=== PATIENT | male | born 1990 | race African-American/Black ===

== ENCOUNTER 2023-05-17 19:03 | Emergency (ER) | payer OTHER, SELFPAY ==
[2023-05-17 19:41] VITALS: BP 166/106; PULSE 80; RESP 18; TEMP 36.4; O2SAT 98
[2023-05-17 20:30] LABS: Influenza A QL RT-PCR Negative (Negative); Influenza B QL RT-PCR Negative (Negative); RSV RNA, RT-PCR Positive (Negative); SARS-CoV-2 RNA PCR Negative (Negative)
--- NOTE | 2023-05-17 22:41 | ED.URI ---
HPI - URI/Sore Throat General Chief Complaint: Upper Respiratory Infection Stated Complaint: flu like symptoms, coughing, back pain Time Seen by Provider: 05/17/23 21:51 History of Present Illness HPI Narrative: Patient is a 33-year-old male with history of hypertension presenting with flu-like symptoms. States that for the last several days he has had a cough and has been coughing up mucus. States that he has a long history of chronic lower back pain. He has had a diskectomy and laminectomy in the past. He fell down his stairs a few days ago and since that time has had an exacerbation of his left-sided lower back pain. States that it really hurts whenever he coughs. He has been taking Tylenol with some relief. Denies new numbness or weakness, saddle anesthesia, bladder or bowel incontinence. No fevers or chills. No chest pain or difficulty breathing. No leg swelling. Related Data Allergies Allergy/AdvReac Type Severity Reaction Status Date / Time No Known Allergies Allergy Unverified 12/27/17 13:43 Review of Systems Review of Systems: All systems reviewed & are unremarkable except as noted in HPI and below Exam Narrative: GENERAL: Well-appearing, in no acute distress, very pleasant and cooperative HEAD: Normocephalic, atraumatic. EYES: PERRLA and EOMI. ENT: +nasal congestion NECK: Supple. CHEST: Clear to auscultation. No respiratory distress. +coughing intermittently HEART: Regular rate and rhythm. EXTREMITIES: Normal range of motion. BACK: left lower back tenderness w/palpation, no midline tenderness SKIN: Warm, dry, no rash. NEURO: No focal deficits. Alert and oriented x3. PSYCH: Normal mood and affect. Course Vital Signs Vital signs: Vital Signs Temperature 97.5 F L 05/17/23 19:41 Pulse Rate 80 05/17/23 19:41 Respiratory Rate 18 05/17/23 19:41 Blood Pressure 166/106 H 05/17/23 19:41 Pulse Oximetry 98 05/17/23 19:41 Oxygen Delivery Room Air 05/17/23 19:41 Temperature 97.5 F L 05/17/23 19:41 Pulse Rate 80 05/17/23 19:41 Respiratory Rate 18 05/17/23 19:41 Blood Pressure 166/106 H 05/17/23 19:41 Pulse Oximetry 98 05/17/23 19:41 Oxygen Delivery Room Air 05/17/23 19:41 MDM - URI/Sore Throat MDM Narrative Medical decision making narrative: 33-year-old male presenting with URI symptoms for several days. Vitals stable. Exam remarkable for the above. Patient is positive for RSV. Patient complains of severe lower back pain whenever he coughs, states that he has a history of lower back pain. He also has a history of of gastric bypass and is unable to take regular NSAIDs. Will provide short course of Tylenol 3 and advised close PCP follow-up. Appropriate return precautions given. Discharged in stable condition. Differential Diagnosis Differential diagnosis: Likely upper respiratory infection, viral infection and influenza Lab Data Attestation: I reviewed the patient's lab results. Labs: Lab Results 05/17/23 Range/Units 19:49 Influenza A (RT-PCR) Negative (Negative) Influenza B (RT-PCR) Negative (Negative) RSV (RT-PCR) Positive A (Negative) SARS-CoV-2 RNA (RT-PCR) Negative (Negative) Critical Care Time Critical Care Time Critical Care Time: No Discharge Plan Discharge Clinical Impression: Respiratory syncytial virus (RSV), Low back pain Patient Disposition: Home, Self-Care Condition: Stable Instructions: Antibiotic Form, RSV (Respiratory Syncytial Virus) Infection (ED) Additional Instructions: You tested positive for RSV today. Please rest and drink plenty of hydrating fluids. We have provided a short course of Tylenol 3 to help with your cough and severe back pain. Please follow-up closely with your PCP. If your symptoms suddenly worsen or other concerning symptoms arise, please return to the ER. Prescriptions: New acetaminophen-codeine 300-30 mg tablet 1 tablet PO Q6H PRN (Reason: pain) Qty: 10 0R
[2023-05-17 22:45] VITALS: O2SAT 99
[2023-05-17] MEDS: KETOROLAC 30 MG/ML VIAL (*BKC) IM (22:55)
[2023-05-17] MEDS: ACETAMINOPHEN/CODEINE (*CRX) 300/30 MG TABLET 1 TAB PO (22:55)
[2023-05-17 22:57] VITALS: BP 160/100; PULSE 83; RESP 20; TEMP 36.7; O2SAT 97
== END 2023-05-17 23:07 | disposition home or self-care (01) ==
PROVIDERS: Emergency Provider Emergency Medicine
DX: J22 Unspecified acute lower respiratory infection (principal); B97.4 Respiratory syncytial virus as the cause of diseases classified elsewhere; M54.50 Low back pain, unspecified; Z98.84 Bariatric surgery status
CPT/HCPCS: 87637; 96372; 99283; A9270; J1885

== ENCOUNTER 2023-07-30 16:04 | Emergency (ER) | payer OTHER, SELFPAY ==
--- NOTE | ~2023-07-30 | XR_ITS ---
XR ankle LT min 3V, XR foot LT min 3V 07/30/2023 16:43 Indication: Left ankle and foot pain after injury Procedure: 4 views left ankle and 4 views left foot Comparison: No prior studies for comparison. Findings: No fracture, subluxation or dislocation. Ankle mortise intact. No significant soft tissue a bnormality. No foreign bodies. Impression: 1: No acute bone or joint abnormality. Reviewed, dictated and finalized at location B. Impression: 1: No acute bone or joint abnormality. Impression: 1: No acute bone or joint abnormality.
[2023-07-30 16:08] VITALS: PULSE 124; RESP 16; TEMP 36.8; O2SAT 98
[2023-07-30 16:13] VITALS: PULSE 124; RESP 16; TEMP 36.8; O2SAT 98
[2023-07-30 16:15] VITALS: BP 148/84
--- NOTE | 2023-07-30 16:51 | ED.LOWEXIN ---
HPI - Extremity Injury (Lower) General Chief Complaint: Extremity Injury, Lower Stated Complaint: left ankle injury History of Present Illness HPI Narrative: 33-year-old male presents to the emergency room for evaluation of left ankle foot pain status post fall this morning. The patient states that he misstepped off a curb this morning he, causing an inversion injury to his left foot. Patient states he is able a ambulate initially after the injury, but as the day progressed he began experiencing increased pain and swelling in his ankle and lateral surface of his foot. Patient applied an Billy bandage prior to her arrival. Related Data Allergies Allergy/AdvReac Type Severity Reaction Status Date / Time ibuprofen AdvReac Gastrointestinal Verified 07/30/23 16:13 Upset Review of Systems Review of Systems: CONSTITUTIONAL: Denies fever, chills, or sweats. EYES: Denies visual changes, redness, or discharge. ENT: Denies rhinorrhea, congestion, sore throat, or otalgia. CARDIOVASCULAR: Denies chest pain, palpitations, or edema. RESPIRATORY: Denies cough or dyspnea. GASTROINTESTINAL: Denies abdominal pain, nausea, vomiting, or diarrhea. GENITOURINARY: Denies dysuria or hematuria. SKIN: Denies rash or itching. MUSCULOSKELETAL: Reports left ankle and foot pain NEUROLOGIC: Denies headache, numbness, dizziness, or weakness. PSYCHIATRIC: Denies anxiety or depression. Exam Narrative: GENERAL: Well-appearing, well-nourished, no physical limitations, and in no acute distress. HEAD: Normocephalic, atraumatic. EYES: Conjunctivae normal, PERRLA and EOMI. CHEST: Clear to auscultation. No respiratory distress. No wheezes rales or rhonchi. HEART: Regular rate and rhythm. No murmur heard. Normal peripheral pulses. ABDOMEN: Soft, nontender, nondistended, normal active bowel sounds. EXTREMITIES: LLE: +TTP to distal malleolus with STS, LROM. No obvious bony abnormality. +TTP to base of 5th metatarsal SKIN: Warm, dry, no rash. No noted wounds NEURO: No focal deficits. Alert and oriented x3. MAEW. CN's II-XI intact bilaterally, in wheelchair PSYCH: Cooperative. Normal mood and affect. Course Vital Signs Vital signs: Vital Signs Temperature 36.8 C 07/30/23 16:08 Pulse Rate 124 H 07/30/23 16:08 Respiratory Rate 16 07/30/23 16:08 Pulse Oximetry 98 07/30/23 16:08 Oxygen Delivery Room Air 07/30/23 16:08 Temperature 36.8 C 07/30/23 16:13 Pulse Rate 124 H 07/30/23 16:13 Respiratory Rate 16 07/30/23 16:13 Blood Pressure 148/84 H 07/30/23 16:15 Pulse Oximetry 98 07/30/23 16:13 Oxygen Delivery Room Air 07/30/23 16:13 MDM - Extremity Injury (Lower) Imaging Data Radiologist's impression: Impressions Ankle X-Ray 07/30/23 16:45 Impression: 1: No acute bone or joint abnormality. Foot X-Ray 07/30/23 16:45 Impression: 1: No acute bone or joint abnormality. Discharge Plan Discharge Clinical Impression: Ankle sprain and strain Patient Disposition: Home, Self-Care Condition: Stable Instructions: Antibiotic Form, Ankle Sprain (ED) Prescriptions: New naproxen 500 mg tablet 500 mg PO BID Qty: 20 0RF No Action acetaminophen-codeine 300-30 mg tablet 1 tablet PO Q6H PRN (Reason: pain) Qty: 10 0RF Follow-up/Referrals: Sam Nichols MD [Physician] - [facility],MD Jono [Primary Care Provider] - Time of Disposition: 17:02
== END 2023-07-30 17:19 | disposition home or self-care (01) ==
PROVIDERS: Emergency Provider Nurse Practitioner Family; PCP Internal Medicine
DX: S93.492A Sprain of other ligament of left ankle, initial encounter (principal); W10.1XXA Fall (on)(from) sidewalk curb, initial encounter
CPT/HCPCS: 73610; 73630; 99283

== ENCOUNTER 2024-08-03 23:02 | Emergency (ER) | payer SELFPAY ==
[2024-08-03 23:03] VITALS: BP 172/105; PULSE 80; RESP 20; TEMP 36.6; O2SAT 94
--- OUTSIDE RECORDS SUMMARY | 2024-08-04 02:06 | XMS_ITS | Encounter Summary ---
Author Organization [facility] Address [facility] [place] [address] Care Team Providers Care Manager Business Banking Name Role Phone Lacho Tinajero MD Primary Care Provider [phone] Ramandeep Cartagena NP Primary Care Provider [phone] Jono Pérez MD Primary Care Provider Encounter Details Date Type Department Care Team (Late st Contact Info) Description 02/11/2020 MyChart Message Enc [facility] Family [facility] - [address] [place] [address] Lacho Tinajero MD [address] [address] Other Social History Tobacco Use Types Packs/Day Years Used Date Smoking Tobacco: Never Smokeless Tobacco: Never Alcohol Use Standard Drinks/Week Comments Yes 0 (1 standard drink = 0.6 oz pur e alcohol) Sex and Gender Information Value Date Recorded Sex Assigned at Not on file Legal Sex Male 9:19 PM CDT Gender Identity Not on file Sexual Orientation Not on file 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 No / Unsure 02/09/2020 1:53 PM CDT documented as of this encounter Progress Notes * Lacho Tinajero MD - 02/11/2020 11:02 AM CDT FMLA filled out and returned to you * Sydney Marcum MA - 02/11/2020 10:48 AM CDT . documented in this encounter Plan of Treatment Not on file documented as of this encounter Visit Diagnoses Not on filedocumented in this encounter Additional Health Concerns Infection Onset Date Last Indicated Resolved Time COVID-19 Rule Out 02/25/2023 02/25/2023 02/25/2023 11:11 AM FOUNDATION DIRECTOR documented as of this encounter Care Teams Manager Business Banking Relationship Specialty Start Date End Date Lacho Tinajero MD PCP - General FAMILY PRACTICE 05/26/19 10/16/21 Ramandeep Cartagena NP [address] [place] [address] PCP - General NURSE PRACTITIONER 10/17/21 02/24/23 Jono Pérez MD [address] [facility] [address] [place] [id number] PCP - General INTERNAL MEDICINE 02/25/23 documented as of this encounter
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
--- OUTSIDE RECORDS SUMMARY | 2024-08-04 02:06 | XMS_ITS | Referral Summary ---
Author Organization [facility] Address [address] [place] [address] Care Team Providers Care Central Office Supervisor Name Role Phone Katharine Marcum DO Primary Care Provider Allergies Active Allergy Reactions Criticality Noted Date Comments Ibuprofen Other (See comments) Low 05/14/2019 Pt not allergic, but cannot take ibuprofen due to gastric sleeve Medications predniSONE (DELTASONE) 10 mg tablet Take 3 tablets BID fr 4 days, 2 BID for 3 days & 1 BID for 3 days 42 tablet 8 Active Additional Information Patient not taking.Reported on 03/22/2022 ergocalciferol (VITAMIN D) 50,000 unit capsule Take 50,000 Units by mouth once a week. 8 Active acetaminophen ER (TYLENOL) 650 mg 8 hr tablet Take 650 mg by mouth every 8 (eight) hours as needed for pain. Active HYDROcodone-alejandra taminophen (NORCO) 5-325 mg per tabletIndicatio ns:Pain Take 1 tablet by mouth every 6 (six) hours as needed (as needed). Take 1-2 tablets up to Every 6 hours as needed 56 tablet 8 Active Additional Information Patient not taking.Reported on 03/22/2022 escitalopram (LEXAPRO) 10 mg tablet daily. 8 Active LORazepam (ATIVAN) 0.5 mg tablet Take one tablet one hour before injection for anxiety 1 tablet 8 Active gabapentin (NEURONTIN) 300 mg capsule TAKE 1 CAPSULE BY MOUTH AT BEDTIME, INCREASE TO 1 CAP IN THE MORNING, 1 AT NOON, AND 2 AT BEDTIME 120 capsule 3 0 Active Additional Information Patient not taking.Reported on 03/22/2022 traZODone (DESYREL) 50 mg tablet 2 Active Active Problems Problem Noted Date Diagnosed Date Sacroiliac joint pain 01/24/2018 Chronic right-sided low back pain without sciati ca 01/01/2018 Flat foot 01/01/2018 Social History Tobacco Use Types Packs/Day Years Used Date Smoking Tobacco: Never Smokeless Tobacco: Never Tobacco Cessation:Counseling Given: Not Answered Alcohol Use Standard Drinks/Week Comments Yes 0 (1 standard drink = 0.6 oz pur e alcohol) Socially AUDIT-C Answer Date Recorded Q1: How often do you have a drink containing alc ohol? Monthly or less 03/22/2022 Q2: How many drinks containi ng alcohol do you have on a typical day when you are drinking? 1 or 2 03/22/2022 Q3: How often do you have si x or more drinks on one occasion? 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 on file Not on ran e [employer] Not on file Not on file Not on file Last Filed Vital Signs Vital Sign Reading Time Taken Comments Blood Pressure 140/111 05/26/2019 4:47 PM MULTIPLE WIRE SAWYER Pulse 79 05/26/2019 4:47 PM MULTIPLE WIRE SAWYER Temperature 36.7 C (98.1 F) 05/26/2019 4:47 PM MULTIPLE WIRE SAWYER Respiratory Rate 17 03/20/2018 2:25 PM MULTIPLE WIRE SAWYER Oxygen Saturation 98% 05/26/2019 4:47 PM MULTIPLE WIRE SAWYER Inhaled Oxygen Concentration - - Weight 154.2 kg (340 lb) 03/22/2022 10:12 AM MULTIPLE WIRE SAWYER Height 188 cm (6' 2 ) 03/22/2022 10:12 AM MULTIPLE WIRE SAWYER Body Mass Index 43.65 03/22/2022 10:12 AM MULTIPLE WIRE SAWYER Plan of Treatment Not on file Procedures Procedure Name Priority Date/Time Associated Diagnosis Comments TNI WITH LIPID PANEL Routine 11/16/2015 7:15 PM CDT HEMOGLOBIN A1C Routine 06/26/2013 12:58 PM CDT from Last 3 Months or Most Recently Relevant to Health Maintenance Results * (ABNORMAL) TNI with LIPID PANEL (11/16/2015 7:15 PM CDT) Troponin I < 0.300 0.000 - 0.300 ng/mL Comment: Reference using MOE Chemiluminescence Negative: Repeat in 4-6 hours as indicated. Triglycerides 106 0 - 199 mg/dL 11/16/2015 8:20 PM CDT [facility] Comment:12 hr pc highly latonya mmended for Triglyceride Cholesterol 199 0 - 199 mg/dL Comment: Borderline: 200-239 High Risk: >239 HDL Cholesterol 35(L) 40 - 60 mg/dL 11/16/2015 8:20 PM T [facility] H[facility] RES[facility] Comment: Major Risk < 40 mg/dL Moderate Risk 40-60 mg/dL Negative Risk > 60 mg/dL LDL Cholesterol, Calc 143(H) 0 - 130 mg/dL 11/16/2015 8:20 PM T [facility] H[facility]OR[facility] RESULTS Comment:High Risk > 159 mg/d L Cholesterol/HDL Ratio 5.7 Comment: Cholesterol / HDL Ratio 3.5:1 or less is desirable. Cholesterol / HDL Ratio greater than 5:1 is considered higher risk for developing heart disease. 11/16/2015 7:15 PM CDT 11/16/2015 7:34 PM CDT us Chet Medrano LAB BLOOD ORDERABLES Fi nal Result [facility] HISTORICAL RESULTS * (ABNORMAL) Hemoglobin A1c (06/26/2013 12:58 PM CDT) Hemoglobin A1c % 6.4(H) 4.8 - 5.9 % Comment: As of 2010 Method: CHELI Moe 6000 using turbidometric inhibition immunoassay procedure. Results obtained are comparable to results obtained using previous methodology (HPLC). [place] [employer] recommends that the goal of therapy should be an A1C hemoglobin of <7%. Reevaluate the treatment regimen in patients with an A1C >8%. 06/26/2013 12:5 8 PM CDT 06/26/2013 1:01 PM CDT Ora Mccoy MD LAB BLOOD ORDERABLES Final Resu lt [facility] HISTORICAL RESULTS from Last 3 Months or Most Recently Relevant to Health Maintenance Insurance [address] [address] [id number] PPO Care Teams Central Office Supervisor Relationship Specialty Start Date End Date Katharine Marcum DO [address] [address] PCP - General Family Medicine 12/27/17
--- OUTSIDE RECORDS SUMMARY | 2024-08-04 02:06 | XMS_ITS | Clinical Summary ---
Author Organization [facility] [employer] ([place]) Address [address] [place], [place] [address] [address] Care Team Providers Care Allied Health Instructor Name Role Phone Madison Tinajero MD Primary Care Provider [phone] Madison Tinajero MD Unavailable [phone] Katharine Marcum DO Unavailable [phone] Source Comments [facility],non-owned Affiliates and Associated Physician Practices is amultiple site organization consisting of ambulatory clinics and hospital sitesin [place], [place], [place] and [place]. This disclosure is being madepursuant to the Care Everywhere program and may not contain all information available regarding this patient. Last updated 18.[facility] [employer] [facility]) Allergies No known active allergies Medications * Be aware that medications may not be up to date on this document. Alwaysverify current medications with the patient. vitamin D, ergocalciferol, (DRISDOL) 94727 UNITS capsule Take 1 capsule by mouth every 7 days 12 capsule 01/06/2018 Active escitalopram (LEXAPRO) 10 MG tablet 02/10/2018 Active Omeprazole Magnesium (PRILOSEC OTC PO) Active naproxen (NAPROSYN) 500 MG tablet Take 1 tablet by mouth 2 times daily as needed for Pain 20 tablet 02/06/2020 Active hydrOXYzine hcl (ATARAX) 10 MG tablet Take 1 tablet by mouth 3 times daily as needed for Itching 8 tablet 02/07/2020 Active Active Problems Problem Noted Date Diagnosed Date Seizure 02/04/2020 Tachycardia 02/04/2020 Drug overdose, accidental or unintentional, initial encounter 02/04/2020 Family History Medical History Relation Name Comments Cancer - Lung Father Heart Disease Father Status: Deceas ed Hypertension Father Cancer Mother Cancer - Thyroid Mother Hypertension Mother Thyroid Disease Mother Thyroid Disease Sister Relation Name Status Comments Father Mother Sister Social History Tobacco Use Types Packs/Day Years Used Date Smoking Tobacco: Never Smokeless Tobacco: Never Alcohol Use Standard Drinks/Week Comments Never 0 (1 standard drink = 0.6 oz pur e alcohol) socially AUDIT-C Answer Date Recorded Q1: How often do you have a drink containing alc ohol? 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 Gender Identity Not on file Sexual Orientation Not on file Last Filed Vital Signs Vital Sign Reading Time Taken Comments Blood Pressure 155/97 02/07/2020 10:54 PM CDT Pulse 80 02/07/2020 10:54 PM CDT Temperature 37.1 C (98.8 F) 02/07/2020 10:54 PM CDT Respiratory Rate 20 02/07/2020 10:54 PM CDT Oxygen Saturation 98% 02/07/2020 10:54 PM CDT Inhaled Oxygen Concentration - - Weight 145.2 kg (320 lb) 02/07/2020 5:34 PM CDT Height 188 cm (6' 2 ) 02/07/2020 5:34 PM CDT Body Mass Index 41.09 02/07/2020 5:34 PM CDT Plan of Treatment Health Maintenance Due Date Last Done Comments HIV SCREENING 02/25/2007 HEPATITIS C SCREENING 02/21/2010 DTAP/TDAP/TD VACCINES (1 - Tdap) 02/25/2011 HEPATITIS B VACCINE (1 of 3 - 19+ 3-dose series) 02/25/2011 COVID-19 VACCINE (1 - 2023-2 5 season) 2023 DEPRESSION SCREENING 04/15/2024 INFLUENZA VACCINE (Season Ended) 2024 02/02/20 17 ZOSTER VACCINE (1 of 2) 02/25/2042 HIB VACCINE Aged Out No longer eligi ble based on patient's age to complete this topic HPV VACCINE Aged Out No longer eligi ble based on patient's age to complete this topic MENINGOCOCCAL (Group B) VACC INE SHARED DECISION-MAKING Aged Out No longer eligibl e based on patient's age to complete this topic MENINGOCOCCAL GROUPS A/C/Y/W VACCINE Aged Out No longer eligible b ased on patient's age to complete this topic PNEUMOCOCCAL VACCINE Aged Out No long er eligible based on patient's age to complete this topic Insurance AETNA AETNA AETNA AETNA AETNA AETNA AETNA AETNA AETNA AETNA AETNA Advance Directives * Full Code (Latest Code Status on File) Date Activated Date Inactivated Comments 02/04/2020 11:02 PM 02/06/2020 4:13 PM Care Teams Allied Health Instructor Relationship Specialty Start Date End Date Madison Tinajero MD PCP - General 02/06/20 Madison Tinajero MD [facility] 02/06/20 Katharine Marcum DO [address] [place] [address] [facility] 02/04/20
--- OUTSIDE RECORDS SUMMARY | 2024-08-04 02:06 | XMS_ITS | Encounter Summary ---
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 us Historical Provider Final Res ult documented in this encounter Visit Diagnoses Not on filedocumented in this encounter Care Teams Water Superintendent Relationship Specialty Start Date End Date Katharine Marcum DO [address] [address] PCP - General Family Medicine 12/27/17 documented as of this encounter
--- OUTSIDE RECORDS SUMMARY | 2024-08-04 02:06 | XMS_ITS | Clinical Summary ---
Author Organization [facility] Address [address] [place] [address] Care Team Providers Care Stem Shaper Name Role Phone Katharine Marcum DO Primary [...] without sciati ca 01/01/2018 Flat foot 01/01/2018 Surgical History Surgery Date Site/Laterality Comments LUMBAR LAMINECTOMY 04/15/2016 - 04/14/2017 N/A IR INJECTION ARTHROGRAM SI J OINT RIGHT INCLUDES IMAGING GUIDANCE 01/31/2018 Right IR INJECTION ARTHROGRAM SI J OINT RIGHT INCLUDES IMAGING GUIDANCE 03/20/2018 Right BARIATRIC SURGERY Medical History Medical History Date Comments History of lumbar laminectomy 2016 Lumbar facet arthropathy DDD (degenerative disc disease), lumbar Lumbar stenosis BMI 40.0-44.9, adult (HCC) Family History Medical History Relation Name Comments Cancer Father Thyroid cancer Mother Thyroid disease Sister Relation Name Status Comments Father Mother Alive Sister Social History Tobacco Use Types Packs/Day [...] on file Legal Sex Male 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 Gender Identity Not on file Sexual Orientation Not on file 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 Not on file Not on file Not on file Obstetrics History Last Filed Vital Signs Vital Sign Reading Time Taken Comments Blood Pressure 140/111 05/26/2019 4:47 PM PUBLIC TRANSIT TROLLEY DRIVER Pulse 79 05/26/2019 4:47 PM PUBLIC TRANSIT TROLLEY DRIVER Temperature 36.7 C (98.1 F) 05/26/2019 4:47 PM PUBLIC TRANSIT TROLLEY DRIVER Respiratory Rate 17 03/20/2018 2:25 PM PUBLIC TRANSIT TROLLEY DRIVER Oxygen Saturation 98% 05/26/2019 4:47 PM PUBLIC TRANSIT TROLLEY DRIVER Inhaled Oxygen Concentration - - Weight 154.2 kg (340 lb) 03/22/2022 10:12 AM PUBLIC TRANSIT TROLLEY DRIVER Height 188 cm (6' 2 ) 03/22/2022 10:12 AM PUBLIC TRANSIT TROLLEY DRIVER Body Mass Index 43.65 03/22/2022 10:12 AM PUBLIC TRANSIT TROLLEY DRIVER Plan of Treatment Health Maintenance Due Date Last Done Comments Depression Screening 1992 HLA B 5701 Typing 1992 Proteinuria screening Urinalysis (UA) 1992 T Spot (quantiferon gold) 1992 HIV+ Chlamydia and Gonorrhea Screening (Rectal) 02/25/2003 HIV + Chlamydia and Gonorrhea Screening (Urine) 02/25/2005 HIV+ Chlamydia and Gonorrhea Screening (Throat) 02/25/2005 Hepatitis C Screening 02/25/2005 RPR Screening 02/25/2005 Varicella Vaccines (1 of 2 - 13+ 2-dose series) 02/25/2005 G6PD 02/25/2010 Hepatitis A Screening 02/25/2010 Regular Well Visit/Exam 18-64 02/25/2010 Hepatitis A Vaccines (1 of 2 - Risk 2-dose series) 02/25/2011 Pneumococcal vaccine <65 (1 of 2 - PCV) 02/25/2011 Zoster Vaccine (1 of 2) 02/25/2011 Hemoglobin A1C 06/26/2014 06/26/2013, 08/25/2012 Lipid Panel 11/15/2016 11/16/2015 Covid-19 Vaccine (3 - Moderna risk series) 03/19/2021 02/19/2021, 10/29/2020 Influenza Vaccine (#1) 2023 02/01/2017 DTaP/Tdap/Td Vaccine (7 - Td or Tdap) 04/15/2025 04/15/2015, 11/01/1997, 07/17/1993, Additional history exists Hepatitis B Vaccines Completed 11/01/1997, 1992, 1992 HPV Vaccines Aged Out No longer eligi ble based on patient's age to complete this topic Procedures Procedure Name Priority Date/Time Associated Diagnosis Comments TNI WITH LIPID PANEL Routine 11/16/2015 7:15 PM CDT HEMOGLOBIN A1C Routine 06/26/2013 12:58 PM CDT from Last 3 Months or Most Recently Relevant to Health Maintenance Results * (ABNORMAL) TNI with LIPID PANEL (11/16/2015 7:15 PM CDT) Troponin I < 0.300 0.000 - 0.300 ng/mL 11/16/2015 8:09 PM CDT [facility] [employer] HISTORICAL RESULTS Comment: Reference using MOE Chemiluminescence Negative: Repeat in 4-6 hours as indicated. Triglycerides 106 0 - 199 mg/dL 11/16/2015 8:20 PM CDT [facility] [employer] HISTORICAL RESULTS Comment:12 hr pc highly latonya mmended for Triglyceride Cholesterol 199 0 - 199 mg/dL 11/16/2015 8:20 PM T [facility] [employer] HISTORICAL RESULTS Comment: Borderline: 200-239 High Risk: >239 HDL Cholesterol 35(L) 40 - 60 mg/dL 11/16/2015 8:20 PM T [facility] [employer] HISTORICAL RESULTS Comment: Major Risk < 40 mg/dL Moderate Risk 40-60 mg/dL Negative Risk > 60 mg/dL LDL Cholesterol, Calc 143(H) 0 - 130 mg/dL 11/16/2015 8:20 PM T [facility] [employer] [employer] HISTORICAL RESULTS Comment:High Risk > 159 mg/d L Cholesterol/HDL Ratio 5.7 11/16/2015 8:20 PM T [facility] [employer] [employer] HISTORICAL RESULTS Comment: Cholesterol / HDL Ratio 3.5:1 or less is desirable. Cholesterol / HDL Ratio greater than 5:1 is considered higher risk for developing heart disease. 11/16/2015 7:15 PM CDT 11/16/2015 7:34 PM CDT us [employer] LAB BLOOD ORDERABLES Fi nal Result [facility] HISTORICAL RESULTS * (ABNORMAL) Hemoglobin A1c (06/26/2013 12:58 PM CDT) Hemoglobin A1c % 6.4(H) 4.8 - 5.9 % Comment: As of 2010 Method: CHELI Moe 6000 using turbidometric inhibition immunoassay procedure. Results obtained are comparable to results obtained using previous methodology (HPLC). [place] Diabetes Association recommends that the goal of therapy should be an A1C hemoglobin of <7%. Reevaluate the treatment regimen in patients with an A1C >8%. 06/26/2013 12:5 8 PM CDT 06/26/2013 1:01 PM CDT Ora Mccoy MD LAB BLOOD ORDERABLES Final Resu lt [facility] HISTORICAL RESULTS from Last 3 Months or Most Recently Relevant to Health Maintenance Insurance [facility] PPO [facility]PO [facility] PPO Care Teams Stem Shaper Relationship Specialty Start Date End Date Katharine Marcum DO [address] [address] PCP - General Family Medicine 12/27/17
--- NOTE | 2024-08-04 02:48 | ED_ITS ---
HPI - General Adult General Chief complaint: Dental/Oral Stated complaint: Right Upper Jaw Pain Time Seen by Provider: 08/04/24 02:45 History of Present Illness HPI narrative: Patient has had 5-year-old gentleman who presents emergency department with chief complaint of dental pain. Patient reports that he has been having pain in his upper molars reports that he feels as though there is an abscess developing there and there has been some drainage. Patient reports that he has appointment scheduled on the with a dentist. Patient reports he has been taking Tylenol without relief. Related Data Allergies Allergy/AdvReac Type Severity Reaction Status Date / Time ibuprofen AdvReac Other Verified 08/04/24 02:21 naproxen AdvReac Other Verified 08/04/24 02:21 NSAIDS (Non-Steroidal AdvReac Other Verified 08/04/24 02:21 Anti-Inflamma Review of Systems Review of Systems: A 10 system review of systems was completed on the patient and is negative except for what is stated in the HPI. Nursing and ancillary documentation was reviewed. Exam Narrative: GENERAL: Well-appearing, well-nourished, and in no acute distress. HEAD: Normocephalic, atraumatic. EYES: PERRLA and EOMI. ENT: Nares clear, no rhinorrhea or epistaxis. Mucous membranes moist. Multiple dental caries NECK: Supple. CHEST: Clear to auscultation. No respiratory distress. HEART: Regular rate and rhythm. No murmur heard. Normal peripheral pulses. ABDOMEN: Soft, nontender, nondistended, normal active bowel sounds. EXTREMITIES: Normal range of motion. No edema. SKIN: Warm, dry, no rash. NEURO: No focal deficits. Alert and oriented x3. PSYCH: Normal mood and affect. Course Vital Signs Vital signs: Vital Signs Temperature 36.6 C 08/03/24 23:03 Pulse Rate 80 08/03/24 23:03 Respiratory Rate 20 08/03/24 23:03 Blood Pressure 172/105 H 08/03/24 23:03 Pulse Oximetry 94 08/03/24 23:03 Oxygen Delivery Room Air 08/03/24 23:03 Temperature 36.6 C 08/03/24 23:03 Pulse Rate 80 08/03/24 23:03 Respiratory Rate 20 08/03/24 23:03 Blood Pressure 172/105 H 08/03/24 23:03 Pulse Oximetry 94 08/03/24 23:03 Oxygen Delivery Room Air 08/03/24 23:03 Medical Decision Making MDM Narrative Medical decision making narrative: Differential diagnosis includes dental abscess, trench mouth, Kyrie's angina Patient has no signs of trismus no crepitance there is no drainable abscess. The patient was started on amoxicillin the patient was given a dose of [place] in the emergency department Vital Signs Vital Signs: Vital Signs Temperature 36.6 C 08/03/24 23:03 Pulse Rate 80 08/03/24 23:03 Respiratory Rate 20 08/03/24 23:03 Blood Pressure 172/105 H 08/03/24 23:03 Pulse Oximetry 94 08/03/24 23:03 Oxygen Delivery Room Air 08/03/24 23:03 Temperature 36.6 C 08/03/24 23:03 Pulse Rate 80 08/03/24 23:03 Respiratory Rate 20 08/03/24 23:03 Blood Pressure 172/105 H 08/03/24 23:03 Pulse Oximetry 94 08/03/24 23:03 Oxygen Delivery Room Air 08/03/24 23:03 Discharge Plan Discharge Clinical Impression: Dental abscess, Dental caries Patient Disposition: Home Condition: Stable Instructions: Antibiotic Form, Dental Abscess (ED) Patient Language: Russian Prescriptions: New amoxicillin 500 mg capsule 500 mg PO Q12H 10 Days Qty: 20 0RF No Action acetaminophen-codeine 300-30 mg tablet 1 tablet PO Q6H PRN (Reason: pain) Qty: 10 0RF naproxen 500 mg tablet 500 mg PO BID Qty: 20 0RF Follow-up/Referrals: Elisa,MD Jono [Primary Care Provider] - Stand Alone Forms: Work/School Release IP Time of Disposition: 02:51
--- OUTSIDE RECORDS SUMMARY | 2024-08-04 03:07 | XMS_ITS | Clinical Summary ---
Author Organization [facility] [employer] Address [address] [place], [place] [address] [address] Care Team Providers Care Speck Dyer Name Role Phone Madison Tinajero MD Primary Care Provider [phone] Madison Tinajero MD Unavailable [phone] Katharine Marcum DO Unavailable [phone] Source Comments [facility],non-owned Affiliates and Associated Physician Practices is amultiple site organization consisting of ambulatory clinics and hospital sitesin [place], [place], [place] and [place]. This disclosure is being madepursuant to the Care Everywhere program and may not contain all information available regarding this patient. Last updated 18.[facility] [employer] Allergies No known active allergies Medications * Be aware that medications may not be up to date on this document. Alwaysverify current medications with the patient. 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
--- OUTSIDE RECORDS SUMMARY | 2024-08-04 03:07 | XMS_ITS | Encounter Summary ---
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
--- OUTSIDE RECORDS SUMMARY | 2024-08-04 03:07 | XMS_ITS | Clinical Summary ---
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 Not on file Not on file Obstetrics History Last Filed Vital Signs Vital Sign Reading Time Taken Comments Blood Pressure 140/111 05/26/2019 4:47 PM FARM EQUIPMENT MECHANIC APPRENTICE Pulse 79 05/26/2019 4:47 PM FARM EQUIPMENT MECHANIC APPRENTICE Temperature 36.7 C (98.1 F) 05/26/2019 4:47 PM FARM EQUIPMENT MECHANIC APPRENTICE Respiratory Rate 17 03/20/2018 2:25 PM FARM EQUIPMENT MECHANIC APPRENTICE Oxygen Saturation 98% 05/26/2019 4:47 PM FARM EQUIPMENT MECHANIC APPRENTICE Inhaled Oxygen Concentration - - Weight 154.2 kg (340 lb) 03/22/2022 10:12 AM FARM EQUIPMENT MECHANIC APPRENTICE Height 188 cm (6' 2 ) 03/22/2022 10:12 AM FARM EQUIPMENT MECHANIC APPRENTICE Body Mass Index 43.65 03/22/2022 10:12 AM FARM EQUIPMENT MECHANIC APPRENTICE Plan of Treatment Health Maintenance Due Date [...] - 0.300 ng/mL 11/16/2015 8:09 PM CDT [facility] [employer] HISTORICAL RESULTS Comment: Reference using MOE Chemiluminescence Negative: Repeat in 4-6 hours as indicated. Triglycerides 106 0 - 199 mg/dL 11/16/2015 8:[address] [facility] [employer] HISTORICAL RESULTS Comment:12 hr pc highly latonya mmended for Triglyceride Cholesterol 199 0 - 199 mg/dL 11/16/2015 8:20 PM T [facility] HISTORICAL RESULTS Comment: Borderline: 200-239 High Risk: >239 HDL Cholesterol 35(L) 40 - 60 mg/dL 11/16/2015 8:[address] [facility] [employer] HISTORICAL RESULTS Comment: Major Risk < 40 mg/dL Moderate Risk 40-60 mg/dL Negative Risk > 60 mg/dL LDL Cholesterol, Calc 143(H) 0 - 130 mg/dL 11/16/2015 8:20 PM T [facility] HISTORICAL RESULTS Comment:High Risk > 159 mg/d L Cholesterol/HDL Ratio 5.7 11/16/2015 8:20 PM T [facility] HISTORICAL RESULTS Comment: Cholesterol / HDL Ratio 3.5:1 or less is desirable. Cholesterol / HDL Ratio greater than 5:1 is considered higher risk for developing heart disease. 11/16/2015 7:15 PM CDT 11/16/2015 7:34 PM CDT us [employer] LAB BLOOD ORDERABLES Fi nal Result [facility] HISTORICAL RESULTS * (ABNORMAL) Hemoglobin A1c (06/26/2013 12:58 PM CDT) Hemoglobin A1c % 6.4(H) 4.8 - 5.9 % 06/26/2013 9:39 PM CDT [facility] HISTORICAL RESULTS Comment: As of 2010 Method: CHELI Moe 6000 using turbidometric inhibition immunoassay procedure. Results obtained are comparable to results obtained using previous methodology (HPLC). [place] [employer] recommends that the goal of therapy should be an A1C hemoglobin of <7%. Reevaluate the treatment regimen in patients with an A1C >8%. 06/26/2013 12:5 8 PM CDT 06/26/2013 1:01 PM CDT Ora Mccoy MD LAB BLOOD ORDERABLES Final Resu lt [facility] HISTORICAL RESULTS from Last 3 Months or Most Recently Relevant to Health Maintenance Insurance [facility] PPO Care Teams Graphics Programmer Relationship Specialty Start Date End Date Katharine Marcum DO [address] [address] PCP - General Family Medicine 12/27/17
--- OUTSIDE RECORDS SUMMARY | 2024-08-04 03:07 | XMS_ITS | Encounter Summary ---
Author Organization [facility] Address [facility] [place] [address] Care Team Providers Care Well Drill Operator Name Role Phone Lacho Tinajero MD Primary Care Provider [phone] Ramandeep Cartagena NP Primary Care Provider [phone] Jono Pérez MD Primary Care Provider [phone] Encounter Details Date Type Department Care Team (Late st Contact Info) Description 02/11/2020 MyChart Message Enc [facility] Family Medicine - [place] [address] [place] [address] Lacho Tinajero MD [address] [address] Other Social History Tobacco Use [...] 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
--- OUTSIDE RECORDS SUMMARY | 2024-08-04 03:07 | XMS_ITS | Referral Summary ---
Author Organization [facility] Address [address] [place] [address] Care Team Providers Care Laundry Or Dry Cleaners Counter Clerk Name Role Phone Katharine Marcum DO Primary [...] on file Legal Sex Male 12:38 AM RN FACULTY Gender Identity Not on file Sexual Orientation Not on file Occupation Industry Job Start Date Job End Date [employer] Not on file Not on file Not on ran e [employer] Not on file Not on file Not on file Last Filed Vital Signs Vital Sign Reading Time Taken Comments Blood Pressure 140/111 05/26/2019 4:47 PM RN FACULTY Pulse 79 05/26/2019 4:47 PM RN FACULTY Temperature 36.7 C (98.1 F) 05/26/2019 4:47 PM RN FACULTY Respiratory Rate 17 03/20/2018 2:25 PM RN FACULTY Oxygen Saturation 98% 05/26/2019 4:47 PM RN FACULTY Inhaled Oxygen Concentration - - Weight 154.2 kg (340 lb) 03/22/2022 10:12 AM RN FACULTY Height 188 cm (6' 2 ) 03/22/2022 10:12 AM RN FACULTY Body Mass Index 43.65 03/22/2022 10:12 AM RN FACULTY Plan of Treatment Not on file Procedures [...] - 0.300 ng/mL 11/16/2015 8:09 PM CDT [facility] HISTORICAL RESULTS Comment: Reference using MOE Chemiluminescence Negative: Repeat in 4-6 hours as indicated. Triglycerides 106 0 - 199 mg/dL 11/16/2015 8:20 PM [facility] Comment:12 hr pc highly latonya mmended for Triglyceride Cholesterol 199 0 - 199 mg/dL 11/16/2015 8:20 PM T [facility] HISTORICAL RESULTS Comment: Borderline: 200-239 High Risk: >239 HDL Cholesterol 35(L) 40 - 60 mg/dL 11/16/2015 8:20 PM T [facility] RESULTS Comment: Major Risk < 40 mg/dL Moderate Risk 40-60 mg/dL Negative Risk > 60 mg/dL LDL Cholesterol, Calc 143(H) 0 - 130 mg/dL 11/16/2015 8:20 PM T [facility]OR[facility] RESULTS Comment:High Risk > 159 mg/d L Cholesterol/HDL Ratio 5.7 11/16/2015 8:20 PM T [facility] HISTORICAL RESULTS Comment: Cholesterol / HDL Ratio 3.5:1 or less is desirable. Cholesterol / HDL Ratio greater than 5:1 is considered higher risk for developing heart disease. 11/16/2015 7:15 PM CDT 11/16/2015 7:34 PM CDT us Chet Medrano LAB BLOOD ORDERABLES Fi nal Result [facility] HISTORICAL RESULTS * (ABNORMAL) Hemoglobin A1c (06/26/2013 12:58 PM CDT) Hemoglobin A1c % 6.4(H) 4.8 - 5.9 % 06/26/2013 9:39 PM CDT [facility] HISTORICAL RESULTS Comment: As of 2010 Method: CHELI Moe 6000 using turbidometric inhibition immunoassay procedure. Results obtained are comparable to results obtained using previous methodology (HPLC). [place] [employer] recommends that the goal of therapy should be an A1C hemoglobin of <7%. Reevaluate the treatment regimen in patients with an A1C >8%. 06/26/2013 12:5 8 PM CDT 06/26/2013 1:01 PM CDT Ora Mccoy MD LAB BLOOD ORDERABLES Final Resu lt [facility] HISTORICAL RESULTS from Last 3 Months or Most Recently Relevant to Health Maintenance Insurance [address] [id number] [facility] PPO Care Teams Laundry Or Dry Cleaners Counter Clerk Relationship Specialty Start Date End Date Katharine Marcum DO [address] [address] PCP - General Family Medicine 12/27/17
--- OUTSIDE RECORDS SUMMARY | 2024-08-04 03:07 | XMS_ITS | Clinical Summary ---
Author Organization [facility] Address [address] [place] [address] Care Team Providers Care Enamel Buffer Name Role Phone Jono Pérez MD Primary Care Provider Allergies Active Allergy Reactions [...] Problem Noted Date Diagnosed Date Seizure disorder ([facility]) 03/08/2020 Drug overdose, accidental or unintentional, [...] Job Start Date Job End Date [employer] Not on file Not on file Not on file Last Filed Vital Signs Vital Sign Reading Time Taken Comments Blood Pressure 145/93 02/28/2023 12:15 AM [employer] Pulse 88 02/28/2023 12:15 AM [employer] Temperature 37 C (98.6 F) 02/27/2023 6:10 PM [employer] Respiratory Rate 14 02/28/2023 12:15 AM [employer] Oxygen Saturation 97% 02/28/2023 12:15 AM [employer] Inhaled Oxygen Concentration - - Weight 166 kg (365 lb 15.4 oz) 02/27/2023 6:10 P M [employer] Height 190.5 cm (6' 3 ) 02/27/2023 6:10 PM [employer] Body Mass Index 45.74 02/27/2023 6:10 PM [employer] Plan of Treatment Health Maintenance Due Date [...] complete this topic Insurance [employer] Care Teams Enamel Buffer Relationship Specialty Start Date End Date Jono Pérez MD [address] [address] PCP - General INTERNAL MEDICINE 02/25/23
[2024-08-04] MEDS: HYDROcodone/acetaminophen (*CRX) 5-325 MG TABLET 1 TAB PO (03:13)
[2024-08-04] MEDS: AMOXICILLIN 500 MG CAPSULE PO (03:14)
== END 2024-08-04 03:20 | disposition home or self-care (01) ==
LOC: ANHED 08-04 03:05
PROVIDERS: Emergency Provider Emergency Medicine; PCP Internal Medicine
DX: K04.7 Periapical abscess without sinus (principal); K02.9 Dental caries, unspecified
CPT/HCPCS: 99283; A9270